=== PATIENT | female | born 1975 | race Caucasian/White ===

== ENCOUNTER 2017-05-08 20:01 | Emergency (ER) | payer MEDICAID ==
[2017-05-08 20:58] VITALS: BP 120/75
[2017-05-08 21:39] LABS: Anion Gap 21 mmol/L; Blood Urea Nitrogen 8 mg/dL (7-17); Calcium 8.6 mg/dL (8.4-10.2); Carbon Dioxide 18 mmol/L (22-30); Chloride 105.2 mmol/L (98-107); Glucose 100 mg/dL (65-100); Sodium 140 mmol/L (137-145)
--- NOTE | 2017-05-08 22:16 | Ultrasound Report ---
FINAL REPORT PROCEDURE: US OB \T\gt; = 14 WEEKS FETUS TECHNIQUE: Real-time transabdominal sonography of the uterus, placenta, amniotic fluid, adnexa, and fetus was performed with image documentation. Measurements were obtained to determine age/size. M-mode Doppler was used to document heartbeat. CPT 44809 HISTORY: cramping with COMPARISON: No prior studies are available for comparison. FINDINGS: ADDITIONAL GESTATION: None. GENERAL: IUP: Single living intrauterine . Position: Breech at the time of the scan Placental position: Posterior and grade 0, without previa. Amniotic fluid volume: Not measured but subjectively within normal limits MATERNAL: Cervical length: Transabdominal measurement is 3.6 cm. Internal Os: Closed. FETUS: Heart rate and rhythm: 159 BPM, Regular. anatomic survey: Not performed MEASUREMENTS: BPD: 3.0 centimeters, 15 weeks 4 days HC: 11.6 centimeters, 15 weeks 5 days AC: 10.1 centimeters, 16 weeks 0 days FL: 1.7 centimeters, 15 weeks 0 days Mean Gestational Age (composite criteria): 15 weeks 4 days Ratio biometry: Normal. Estimated Due Date : 10/26/2017 There is a rounded heterogeneous structure in the anterior lower uterine segment, which may be a uterine fibroid, which measures up to 10.9 centimeters. IMPRESSION: Single intrauterine gestation at 15 weeks 4 days. Estimated due date: 10/26/2017. Probable large anterior uterine fibroid, in the lower uterine segment, measuring up to 10.9 centimeters.
[2017-05-08 22:47] LABS: Bilirubin,Urine NEG (Negative); Blood,Urine SM (Negative); Ketones,Urine NEG (Negative); Leukocyte Esterase,Urine NEG (Negative); Mucus,Urine FEW /HPF; Nitrite,Urine NEG (Negative); Protein,Urine <15 mg/dL mg/dL (Negative); Urobilinogen,Urine < 2.0 mg/dL (<2.0); WBC,Urine < 1.0 /HPF (0.0-6.0)
[2017-05-08 23:39] LABS: Hematocrit 38.6 % (30.3-42.9); Hemoglobin 13.1 gm/dl (10.1-14.3); Mean Corpuscular HGB Conc 34 % (30-34); Mean Corpuscular Hemoglobin 30 pg (28-32); Mean Corpuscular Volume 89 fl (79-97); Platelet Count 233 K/mm3 (140-440); Red Blood Count 4.33 M/mm3 (3.65-5.03)
== END 2017-05-09 03:01 | disposition left against medical advice (07) ==
LOC: ED 20:01
DX: O26.892 Other specified pregnancy related conditions, second trimester (principal); R10.9 Unspecified abdominal pain; Z53.21 Procedure and treatment not carried out due to patient leaving prior to being seen by health care provider
CPT/HCPCS: 36415; 76805; 80048; 81001; 84702; 85027; 86900; 86901